=== PATIENT | male | born 1990 | race Caucasian/White ===

== ENCOUNTER → 2023-07-31 | Emergency (ER) | payer MEDICAID ==
[~2023-07-31] VITALS: Ht 180.3 cm; Wt 83.1 kg
[~2023-07-31] MED LIST: ONDA4TAB12 PO; ondansetron 4mg rapidly disintigrating tab PO ONE
[2023-07-31 12:38] VITALS: BP 168/93; PULSE 108; RESP 16; TEMP 98.6; O2SAT 97
== END | disposition home or self-care (01) ==
LOC: ER 12:39
DX: B34.9 Viral infection, unspecified (principal); Z88.8 Allergy status to other drugs, medicaments and biological substances
CPT/HCPCS: 99283

== ENCOUNTER 2024-02-08 16:44 | Emergency (ER) | payer MEDICAID ==
[~2024-02-08] VITALS: Ht 180.3 cm; Wt 79.7 kg
[~2024-02-08 16:44] MED LIST changes: -ondansetron 4mg rapidly disintigrating tab PO ONE
[2024-02-08 17:25] VITALS: BP 134/85; PULSE 79; RESP 18; TEMP 98.4; O2SAT 98
== END 2024-02-08 18:21 | disposition home or self-care (01) ==
LOC: ER 16:44
DX: B34.9 Viral infection, unspecified (principal); Z88.6 Allergy status to analgesic agent; Z88.5 Allergy status to narcotic agent; Z79.899 Other long term (current) drug therapy
CPT/HCPCS: 99282

== ENCOUNTER 2024-08-21 16:47 | Emergency (ER) | payer BC, MEDICAID ==
[~2024-08-21] VITALS: Ht 180.3 cm; Wt 83.3 kg
[~2024-08-21 16:47] MED LIST changes: +ONDA-243 PO; -ONDA4TAB12 PO
[2024-08-21 20:03] LABS: BASOPHILS % (AUTO) 0.3 % (0-1); EOSINOPHILS # (AUTO) 0.2 X10'3 (0-0.9); EOSINOPHILS % (AUTO) 1.6 % (0-6); HEMOGLOBIN 13.8 g/dl (14.0-17.9); LYMPHOCYTES # (AUTO) 1.4 X10'3 (1.1-4.8); MEAN CORPUSCULAR HEMOGLOBIN 29.8 PG (27.0-31.0); MEAN CORPUSCULAR HGB CONC 33.7 g/dL (33.0-36.5); MEAN CORPUSCULAR VOLUME 88.6 FL (78-98); MEAN PLATELET VOLUME 7.4 FL (7.4-10.4); MONOCYTES # (AUTO) 0.6 X10'3 (0-0.9); MONOCYTES % (AUTO) 5.1 % (2-12); NEUTROPHILS # (AUTO) 8.8 X10'3 (1.8-7.7); PLATELET COUNT 264 X10'3 (140-440); RED BLOOD COUNT 4.63 X10'6 (4.70-6.10); RED CELL DISTRIBUTION WIDTH 13.5 % (11.5-14.5)
[2024-08-21 20:22] LABS: ALANINE AMINOTRANSFERASE 21 U/L (12-78); ALBUMIN 3.9 G/DL (3.4-5.0); ALBUMIN/GLOBULIN RATIO 1.1 (1.1-1.5); ALKALINE PHOSPHATASE 59 IU/L (46-116); ANION GAP 7 (8-16); ASPARTATE AMINO TRANSFERASE 20 U/L (10-37); BILIRUBIN,TOTAL 1.5 MG/DL (0.1-1.0); BLOOD UREA NITROGEN 9 MG/DL (7-18); BUN/CREATININE RATIO 9.4 (10.0-20.0); CALCIUM 8.9 MG/DL (8.5-10.1); CHLORIDE 105 MMOL/L (99-107); CREATININE 0.96 MG/DL (0.60-1.10); GLUCOSE 106 MG/DL (70-104); POTASSIUM 3.9 MMOL/L (3.5-5.1); SODIUM 142 MMOL/L (135-145); TOTAL CARBON DIOXIDE 29.6 MMOL/L (24-32); TOTAL PROTEIN 7.3 G/DL (6.4-8.2); eCRCL 115 ML/MIN; eGFR 90 ML/MIN
[2024-08-21 20:31] LABS: PRO BRAIN NATRIURETIC PEPTIDE 34 PG/ML (0-125)
[2024-08-21 23:47] VITALS: BP 122/90; PULSE 55; RESP 16; TEMP 98.6; O2SAT 99
== END 2024-08-21 23:48 | disposition home or self-care (01) ==
LOC: ER 16:48
DX: G58.8 Other specified mononeuropathies (principal); R07.89 Other chest pain; R10.31 Right lower quadrant pain; R06.02 Shortness of breath; Z88.5 Allergy status to narcotic agent; Z88.8 Allergy status to other drugs, medicaments and biological substances
CPT/HCPCS: 36415; 71046; 80053; 83880; 84484; 85025; 93005; 99285